=== PATIENT | female | born 1980 | race Caucasian/White ===

== ENCOUNTER 2025-02-18 20:48 | Emergency (ER) | payer MEDICAID, SELFPAY ==
[2025-02-18 21:12] VITALS: BP 150/84; PULSE 69; RESP 16; TEMP 36.9; O2SAT 97; BMI 34.4
--- NOTE | 2025-02-18 22:17 | W.ED.DENTAL ---
HPI - Dental/Oral General: Chief complaint: Dental/Oral Stated complaint: Tooth pulled a week ago, swelling, pain Time Seen by Provider: 02/18/25 21:49 History of Present Illness: Chief complaint is dental pain. Patient states that she had a tooth removed on the bottom left last week. She states it started having increasing pain and fever. She states she went to urgent care and was prescribed doxycycline but it does not seem to be helping the pain. She states she does not like opiates but she has been taking alternating ibuprofen and Tylenol. Related Data Previous Rx's ?Medication ?Instructions ?Recorded clindamycin HCl 300 mg capsule 300 mg PO Q6H 7 days #28 caps 02/18/25 (Cleocin HCl) Allergies Allergy/AdvReac Type Severity Reaction Status Date / Time cefaclor (From [facility]) Allergy ALGY-Anaphy Verified 02/18/25 21:22 laxis morphine Allergy ADR-Halluci Verified 02/18/25 21:22 nating Penicillins Allergy ALGY-Anaphy Verified 02/18/25 21:22 laxis Sulfa (Sulfonamide Allergy ALGY-Anaphy Verified 02/18/25 21:22 Antibiotics) laxis tramadol Allergy ALGY-Difficulty Verified 02/18/25 21:22 Breathing [facility] ED Female Reproductive History: Date of last menstrual period: 02/18/25 Physical Exam Narrative: EXAM NARRATIVE: Alert oriented no acute distress but anxious. Neck supple. No facial swelling. No trismus. Moist mucous membranes. She has socket on the bottom posterior left with exposed bone. There is some mild drainage. Mild gum swelling. TMs are normal. Heart regular rhythm. Lung sounds are clear. Abdomen soft nontender. Extremities warm well-perfused. No calf tenderness. No pitting edema. No rash to exposed areas. Patient speech is clear. She shows ability to reason. No facial droop. Pupils equal reactive to light. Full range ocular motion. Normal conjunctiva Course Vital Signs: Vital signs: Vital Signs Temperature 98.5 F 02/18/25 21:12 Pulse Rate 69 02/18/25 21:12 Respiratory Rate 16 02/18/25 21:12 Blood Pressure 150/84 02/18/25 21:12 Pulse Oximetry 97 02/18/25 21:12 Oxygen Delivery Me thod Room Air 02/18/25 21:12 MDM - Dental/Oral Medical Decision Making Patient reports having a tooth pulled and subsequently developing worsening pain and fever and the pain is in the bottom left jaw. Denies any chest pain or shortness of breath. Clear cause with what appears consistent with a dry socket and she has exposed bone. No trismus. Not suggestive of referred cardiac with clear precipitating event. She denies chest pain or shortness of breath. No cough. She has had some vomiting but has chronic problems with nausea and vomiting and states that is when the pain is flared up. She states the doxycycline also may have made it worse. She went to urgent care for this was started on doxycycline but it has not helped. She denies allergy to clindamycin. She denies history of C. difficile. I discussed risk of benefit in balance of risk and benefit and she wants to go and switch to clindamycin. Will have her stop the doxycycline I ordered a dose clindamycin here and I gave her prescription for clindamycin. She has an appoint with her dentist tomorrow. I advised importance of follow-up and consultation with dentist or oral surgeon and limits of ED evaluation. Advised signs symptoms of worsening to watch and return for. Patient denies headache or abdominal pain or rash no recent tick bite. She does have some pain in her left ear which is likely referred pain. Patient agrees with plan after informed discussion I advised signs symptoms of worsening to watch and return for and symptomatic treatment. She states that she can take her own ibuprofen at home. No radiology studies performed this visit Discharge Plan Discharge Patient Disposition: Home Clinical Impression: Toothache, Dry tooth socket Condition: Stable Prescriptions: New clindamycin HCl [Cleocin HCl] 300 mg capsule 300 mg PO Q6H 7 Days Qty: 28 0RF Discharge Orders: Discharge ED (Routine); Ordered 02/18/25 Ordered By: Glynn Lott Referrals: Madonna Gordon FNP [Primary Care Provider, Nurse Practitioner] Jt Otero DO [Family Provider, Unknown] Patient Instructions: Opioid Safety, Pain Management, Patient Portal & [place] Instructions Activity Restrictions/Additional Instructions: Follow-up with your dentist tomorrow as planned. Come back if increased swelling or pain, persistent fever or vomiting or new or worsening symptoms or concerns. Come back if concerning diarrhea. Antibiotics can lead to overgrowth of the bacteria called C. difficile. Stop the doxycycline. 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
[2025-02-18 22:32] VITALS: BP 161/106; PULSE 58; O2SAT 98
== END 2025-02-18 22:33 | disposition home or self-care (01) ==
PROVIDERS: Emergency Provider Emergency Medicine
DX: K08.89 Other specified disorders of teeth and supporting structures (principal); M27.3 Alveolitis of jaws
CPT/HCPCS: 99283; J9999; Q0162